=== PATIENT | male | born 1960 | race Caucasian/White ===

== ENCOUNTER 2023-07-17 13:26 | Emergency (ER) | payer OTHER ==
[2023-07-17 13:54] VITALS: BP 152/75; PULSE 79; RESP 18; TEMP 99.4; BMI 34.7
[2023-07-17] MEDS ORDERED: ACETAMINOPHEN INJECTION 100 ML IVPB ONE (14:08)
[2023-07-17] MEDS: SODIUM CHLORIDE 0.9% 1000 ML INFUS.BAG IV ONE (14:28)
[2023-07-17] MEDS: ACETAMINOPHEN 1000 MG/100 ML BAG IVPB ONE (14:28)
[2023-07-17 14:44] LABS: HEMOGLOBIN 14.7 G/dL (11.7-16.9); MCH 31.2 pg (25.7-33.7); MCHC 33.5 g/dl (32.0-35.9); PLATELET COUNT 286.7 10^3/uL (134-434); RBC 4.73 10^6/uL (4.00-5.60); RDW 14.2 % (11.9-15.9); WHITE BLOOD COUNT 6.3 10^3/uL (4.0-10.8)
[2023-07-17 15:22] LABS: CALCIUM 8.9 mg/dL (8.5-10.1)
[2023-07-17 15:23] LABS: PLATELET ESTIMATE ADEQUATE
[2023-07-17 15:24] LABS: ALBUMIN 3.7 g/dl (3.4-5.0); BLOOD UREA NITROGEN 18.6 mg/dL (7-18)
[2023-07-17 15:25] LABS: CREATININE 0.6 mg/dL (0.55-1.3)
[2023-07-17 15:27] LABS: BILIRUBIN,TOTAL 1.1 mg/dL (0.2-1); TOT PROT 6.9 g/dl (6.4-8.2)
[2023-07-17] MEDS ORDERED: SIMETHICONE 80 MG TAB.CHEW (FP) ONE (19:13)
[2023-07-17] MEDS: MAG HYDROX/AL HYDROX/SIMETH 30 ML UNIT-DOSE CUP PO ONE (19:20)
[2023-07-17] MEDS: SIMETHICONE 80 MG TAB.CHEW (FP) PO ONE (19:20)
== END 2023-07-17 19:20 | disposition home or self-care (01) ==
LOC: FER 13:26
PROC: 3E033NZ Introduction of Analgesics, Hypnotics, Sedatives into Peripheral Vein, Percutaneous Approach (ICD-10-PCS; principal; 2023-07-17)
DX: R10.84 Generalized abdominal pain (principal)
CPT/HCPCS: 36415; 74019-TC-FY; 74177-TC; 80053; 82272; 83690; 85027; 99285-25; J0131; Q9967

== ENCOUNTER 2023-07-19 15:23 | Observation (INO) | payer OTHER ==
[2023-07-19] MEDS ORDERED: HYDROmorphone HCl 2 MG/ML VIAL ONE ×2 (15:49→22:48)
[2023-07-19] MEDS: HYDROmorphone HCl 2 MG/ML VIAL IVPUSH ONE ×2 (15:53→22:56)
[2023-07-19] MEDS ORDERED: ONDANSETRON 4 MG/2 ML VIAL ONE ×2 (16:09→22:49)
[2023-07-19] MEDS ORDERED: FAMOTIDINE 20 MG/50 ML IVPB 20 MG/50 ML MG IVPB ONE (16:09)
[2023-07-19 16:12] LABS: BASO % 0.3 % (0-2.0); HEMATOCRIT 45.9 % (35.4-49); HEMOGLOBIN 16.1 GM/dL (11.7-16.9); LYMPH % 10.4 % (8-40); MCH 31.7 pg (25.7-33.7); MCHC 35.1 g/dl (32.0-35.9); MEAN CELL VOLUME 90.4 fl (80-96); MEAN PLT VOLUME 7.4 fl (7.5-11.1); MONO % 7.1 % (3.8-10.2); NEUT % 81.2 % (42.8-82.8); PLATELET COUNT 362 10^3/uL (134-434); RBC 5.07 M/mm3 (4.00-5.60); RDW 13.9 % (11.9-15.9); WHITE BLOOD COUNT 10.3 K/mm3 (4.0-10.0)
[2023-07-19] MEDS: ONDANSETRON 4 MG/2 ML VIAL IVPUSH ONE ×2 (16:15→22:56)
[2023-07-19] MEDS: FAMOTIDINE 20 MG/50 ML IVPB 20 MG/50 ML MG IVPB ONE (16:15)
[2023-07-19] MEDS: LACTATED RINGERS SOLUTION 1000 ML INFUS.BAG IV ONE ×2 (16:15→22:57)
[2023-07-19 16:19] LABS: INR 1.01 (0.83-1.09); PROTHROMBIN TIME (PATIENT) 11.4 SEC (9.7-13.0)
[2023-07-19 16:22] LABS: ACTIVATED PTT 29.4 SECONDS (25.2-36.5)
[2023-07-19 16:34] LABS: POTASSIUM 3.8 mmol/L (3.5-5.1)
[2023-07-19 16:38] LABS: ALBUMIN 4.2 g/dl (3.4-5.0); BLOOD UREA NITROGEN 15.2 mg/dL (7-18); CALCIUM 9.9 mg/dL (8.5-10.1)
[2023-07-19 16:40] LABS: CREATININE 0.7 mg/dL (0.55-1.3)
[2023-07-19 16:43] LABS: BILIRUBIN,TOTAL 0.9 mg/dL (0.2-1); TOT PROT 7.8 g/dl (6.4-8.2)
[2023-07-20] MEDS ORDERED: ONDANSETRON 4 MG/2 ML VIAL IVPUSH PRN (01:14)
[2023-07-20] MEDS ORDERED: PANTOPRAZOLE SODIUM 40 MG/100 ML BAG IVPB ONE (01:29)
[2023-07-20] MEDS: LACTATED RINGERS SOLUTION 1,000 ML/1,000 ML INFUS.BAG IV SCH (01:47)
[2023-07-20] MEDS: PANTOPRAZOLE SODIUM 40 MG VIAL IVPUSH SCH ×2 (01:47→11:07)
[2023-07-20 06:53] LABS: EPI CELLS 1 /uL (0-25.1); HYALINE CASTS 0 /uL (0-3.1); URINE APPEARANCE CLEAR; URINE BACTERIA 6 /uL (0-1359); URINE BILIRUBIN NEGATIVE (NEGATIVE); URINE COLOR YELLOW; URINE GLUCOSE (UA) NEGATIVE (NEGATIVE); URINE KETONE NEGATIVE (NEGATIVE); URINE LEUK ESTERASE NEGATIVE (NEGATIVE); URINE NITRITE NEGATIVE (NEGATIVE); URINE PROTEIN NEGATIVE (NEGATIVE); URINE RBC 31 /uL (0-23.9); URINE WBC 6 /uL (0-25.8)
[2023-07-20 07:16] LABS: HEMATOCRIT 38.1 % (35.4-49); HEMOGLOBIN 13.4 GM/dL (11.7-16.9); MCH 32.3 pg (25.7-33.7); MCHC 35.1 g/dl (32.0-35.9); MEAN PLT VOLUME 7.3 fl (7.5-11.1); PLATELET COUNT 303 10^3/uL (134-434); RBC 4.14 M/mm3 (4.00-5.60); RDW 13.5 % (11.9-15.9); WHITE BLOOD COUNT 6.6 K/mm3 (4.0-10.0)
[2023-07-20] MEDS: INSULIN ASPART SLIDING SCALE (NOVOLOG) 1 VIAL SQ SCH (07:39)
[2023-07-20 07:40] LABS: POTASSIUM 3.6 mmol/L (3.5-5.1)
[2023-07-20 07:58] LABS: CALCIUM 8.6 mg/dL (8.5-10.1)
[2023-07-20 07:59] LABS: BLOOD UREA NITROGEN 11.3 mg/dL (7-18)
[2023-07-20 08:01] LABS: CHOLESTEROL 123 mg/dL (50-200); CREATININE 0.6 mg/dL (0.55-1.3); PHOSPHOROUS 3.5 mg/dL (2.5-4.9)
[2023-07-20 08:03] LABS: HDL CHOLESTEROL 51 mg/dL (40-60); LDL CHOLESTEROL (ONLY SJRH) 65 mg/dL (5-100); TOT PROT 6.1 g/dl (6.4-8.2)
[2023-07-20 08:05] LABS: ALBUMIN 3.2 g/dl (3.4-5.0)
[2023-07-20] MEDS: ESCITALOPRAM OXALATE 10 MG TABLET PO SCH (09:36)
[2023-07-20] MEDS: LISINOPRIL 20 MG TABLET PO SCH (09:36)
[2023-07-20] MEDS: amLODIPine BESYLATE 10 MG TABLET (FP) PO SCH (09:36)
[2023-07-20] MEDS: ENOXAPARIN NA (PORCINE) 40 MG/0.4 ML DISP.SYRIN SQ SCH (09:37)
[2023-07-20 10:34] VITALS: BMI 34.9
[2023-07-20] MEDS: buPROPion HCL 75 MG TABLET PO SCH (12:02)
[2023-07-20] MEDS: ACETAMINOPHEN 1000 MG/100 ML BAG IVPB PRN (19:17)
[2023-07-20] MEDS: ATORVASTATIN CA 20 MG TABLET (FP) PO SCH (21:15)
[2023-07-21] MEDS: MELATONIN 5 MG TABLETS PO PRN (00:14)
[2023-07-21] MEDS ORDERED: LIDOCAINE VISCOUS 2% ORAL/TOP 15 ML UNIT-DOSE CUP MM PRN (09:42)
[2023-07-21] MEDS: ESCITALOPRAM OXALATE 10 MG TABLET PO SCH (11:17)
[2023-07-22] MEDS ORDERED: INSULIN (NOVOLOG) ASPART 100 UNITS/ML 10ML VIAL ONE (06:14)
[2023-07-22 11:53] VITALS: RESP 19
[2023-07-22 13:44] VITALS: BP 133/82; PULSE 64; TEMP 98.2
== END 2023-07-22 14:21 | disposition home or self-care (01) ==
LOC: JER 15:23 → JERBED 21:47 → UNDOADMOB 21:47 → INTOOBSV 21:47 → JERBED 07-20 06:48 → J8W 07-20 06:48 → JERBED 07-20 15:02 → J7W 07-20 18:55
PROVIDERS: ADMIT Internal Medicine; ATTEND Nurse Practitioner
PROC: 3E033GC Introduction of Other Therapeutic Substance into Peripheral Vein, Percutaneous Approach (ICD-10-PCS; principal; 2023-07-20)
PROC: 3E033NZ Introduction of Analgesics, Hypnotics, Sedatives into Peripheral Vein, Percutaneous Approach (ICD-10-PCS; 2023-07-20)
PROC: 3E023GC Introduction of Other Therapeutic Substance into Muscle, Percutaneous Approach (ICD-10-PCS; 2023-07-20)
PROC: 3E033NZ Introduction of Analgesics, Hypnotics, Sedatives into Peripheral Vein, Percutaneous Approach (ICD-10-PCS; 2023-07-20)
PROC: 3E0337Z Introduction of Electrolytic and Water Balance Substance into Peripheral Vein, Percutaneous Approach (ICD-10-PCS; 2023-07-20)
PROC: 0WUF4JZ Supplement Abdominal Wall with Synthetic Substitute, Percutaneous Endoscopic Approach (ICD-10-PCS; 2023-07-20)
DX: Z53.8 Procedure and treatment not carried out for other reasons (principal); K56.609 Unspecified intestinal obstruction, unspecified as to partial versus complete obstruction; K42.9 Umbilical hernia without obstruction or gangrene; F41.9 Anxiety disorder, unspecified; E78.5 Hyperlipidemia, unspecified; E66.9 Obesity, unspecified; Z68.35 Body mass index [BMI] 35.0-35.9, adult; I10 Essential (primary) hypertension
CPT/HCPCS: 36415; 74019-TC-FY; 74177-TC; 76705-TC; 80053; 80061; 81003; 83036; 83605; 83690; 83735; 84100; 85025; 85027; 85610; 85730; 86850; 86900; 86901; 87086; 93005; 93010; 96361; 96365; 96372; 96375; 96376; 99285-25; G0378; J0131; Q9967

== ENCOUNTER 2023-07-23 01:10 | Observation (INO) | payer OTHER ==
[2023-07-23] MEDS ORDERED: ONDANSETRON 4 MG/2 ML VIAL ONE ×2 (01:38→10:54)
[2023-07-23] MEDS ORDERED: morphine SULFATE 4 MG/ML VIAL ONE (01:38)
[2023-07-23] MEDS: SODIUM CHLORIDE 0.9% 500 ML INFUS.BAG IV ONE ×2 (02:05→04:01)
[2023-07-23] MEDS: ONDANSETRON 4 MG/2 ML VIAL IVPUSH ONE (02:05)
[2023-07-23 02:10] LABS: BASO % 0.4 % (0-2.0); EOS % 3.5 % (0-4.5); HEMATOCRIT 45.5 % (35.4-49); HEMOGLOBIN 16.1 GM/dL (11.7-16.9); LYMPH % 19.1 % (8-40); MCHC 35.5 g/dl (32.0-35.9); MEAN CELL VOLUME 90.3 fl (80-96); MEAN PLT VOLUME 7.1 fl (7.5-11.1); PLATELET COUNT 388 10^3/uL (134-434); RBC 5.04 M/mm3 (4.00-5.60); RDW 13.8 % (11.9-15.9); WHITE BLOOD COUNT 10.1 K/mm3 (4.0-10.0)
[2023-07-23 02:17] LABS: INR 1.03 (0.83-1.09); PROTHROMBIN TIME (PATIENT) 11.8 SEC (9.7-13.0)
[2023-07-23 02:20] LABS: ACTIVATED PTT 32.8 SECONDS (25.2-36.5)
[2023-07-23] MEDS: morphine CARPU-JECT 4 MG/1 ML DISP.SYRIN IVPUSH ONE ×2 (02:27→02:59)
[2023-07-23 02:32] LABS: POTASSIUM 3.9 mmol/L (3.5-5.1)
[2023-07-23 02:34] LABS: CALCIUM 9.8 mg/dL (8.5-10.1); LACTIC ACID 2.1 mmol/L (0.4-2.0)
[2023-07-23 02:35] LABS: BLOOD UREA NITROGEN 12.4 mg/dL (7-18); MAGNESIUM 2.2 mg/dL (1.8-2.4)
[2023-07-23 02:37] LABS: CREATININE 0.9 mg/dL (0.55-1.3)
[2023-07-23 02:39] LABS: BILIRUBIN,TOTAL 0.7 mg/dL (0.2-1); TOT PROT 7.4 g/dl (6.4-8.2)
[2023-07-23] MEDS ORDERED: ACETAMINOPHEN INJECTION 100 ML IVPB ONE ×2 (02:42→10:53)
[2023-07-23 02:44] LABS: ALBUMIN 4.1 g/dl (3.4-5.0)
[2023-07-23] MEDS: ACETAMINOPHEN 1000 MG/100 ML BAG IVPB ONE (02:59)
[2023-07-23] MEDS ORDERED: PATIENT'S OWN MEDICATION (NON-FORMULARY) (Omeprazole [Omeprazole] 20 MG Tablet.Dr) PO SCH (10:15)
[2023-07-23] MEDS: ONDANSETRON 4 MG/2 ML VIAL IVPUSH PRN (11:06)
[2023-07-23] MEDS: ACETAMINOPHEN 1000 MG/100 ML BAG IVPB PRN (11:06)
[2023-07-23] MEDS ORDERED: PANTOPRAZOLE 40 MG TABLET PO ONE (11:32)
[2023-07-23] MEDS ORDERED: amLODIPine BESYLATE 10 MG TABLET (FP) ONE (11:33)
[2023-07-23] MEDS ORDERED: ESCITALOPRAM OXALATE 10 MG TABLET ONE (11:33)
[2023-07-23] MEDS ORDERED: LISINOPRIL 20 MG TABLET ONE (11:33)
[2023-07-23] MEDS: ESCITALOPRAM OXALATE 10 MG TABLET PO SCH (11:54)
[2023-07-23] MEDS: amLODIPine BESYLATE 10 MG TABLET (FP) PO SCH (11:54)
[2023-07-23] MEDS: PANTOPRAZOLE 40 MG TABLET PO SCH (11:54)
[2023-07-23] MEDS: LISINOPRIL 20 MG TABLET PO SCH (11:54)
[2023-07-23] MEDS: LACTATED RINGERS SOLUTION 1,000 ML/1,000 ML INFUS.BAG IV SCH (11:55)
[2023-07-23] MEDS: ATORVASTATIN CA 20 MG TABLET (FP) PO SCH (21:17)
[2023-07-24 15:50] VITALS: BMI 34.3
[2023-07-24] MEDS: DOCUSATE SODIUM 100 MG CAPSULE (FP) PO SCH (16:47)
[2023-07-25] MEDS: LACTATED RINGERS SOLUTION 1,000 ML/1,000 ML INFUS.BAG IV SCH (21:59)
[2023-07-26 09:42] LABS: BASO % 0.8 % (0-2.0); EOS % 3.8 % (0-4.5); LYMPH % 23.6 % (8-40); MCH 31.2 pg (25.7-33.7); MCHC 34.2 g/dl (32.0-35.9); MEAN CELL VOLUME 91.3 fl (80-96); MEAN PLT VOLUME 7.1 fl (7.5-11.1); MONO % 10.3 % (3.8-10.2); NEUT % 61.5 % (42.8-82.8); PLATELET COUNT 360 10^3/uL (134-434); RBC 4.49 M/mm3 (4.00-5.60); RDW 13.3 % (11.9-15.9); WHITE BLOOD COUNT 6.3 K/mm3 (4.0-10.0)
[2023-07-26] MEDS ORDERED: BUPIVACAINE HCL/PF 0.25% (2.5MG/ML) 10 ML VIAL ONE (09:48)
[2023-07-26] MEDS ORDERED: FENTANYL CITRATE/PF 50 MCG/ML VIAL ONE ×5 (09:53→19:05)
[2023-07-26] MEDS ORDERED: MIDAZOLAM HCL 2 MG/2 ML SINGLE DOSE VIAL ONE (09:54)
[2023-07-26] MEDS ORDERED: ROCURONIUM BROMIDE 50 MG/5 ML VIAL ONE ×4 (09:54→16:03)
[2023-07-26] MEDS ORDERED: PROPOFOL 20 ML ONE ×2 (09:54→18:14)
[2023-07-26 09:55] LABS: CALCIUM 9.2 mg/dL (8.5-10.1)
[2023-07-26] MEDS ORDERED: SUCCINYLCHOLINE CHLORIDE 200 MG/10 ML SYRINGE ONE (09:56)
[2023-07-26 09:59] LABS: CREATININE 0.6 mg/dL (0.55-1.3)
[2023-07-26] MEDS ORDERED: DEXAMETHASONE SOD PHOSPHATE 4 MG/1 ML VIAL ONE (10:41)
[2023-07-26] MEDS ORDERED: ONDANSETRON 4 MG/2 ML VIAL ONE (10:41)
[2023-07-26] MEDS: ceFAZolin SODIUM 1 GM VIAL IVPB ONE (10:50)
[2023-07-26] MEDS ORDERED: ceFAZolin SODIUM 1 GM VIAL ONE (10:58)
[2023-07-26] MEDS ORDERED: HYDROmorphone HCl 2 MG/ML VIAL ONE (11:21)
[2023-07-26] MEDS ORDERED: ACETAMINOPHEN INJECTION 100 ML IVPB ONE (11:45)
[2023-07-26] MEDS ORDERED: SUGAMMADEX SODIUM 200 MG/2 ML VIAL ONE (16:04)
[2023-07-26] MEDS ORDERED: KETOROLAC TROMETHAMINE 30 MG/1 ML VIAL ONE (16:04)
[2023-07-26] MEDS: BUPIVACAINE HCL/PF 2.5 MG/ML - 30 ML VIAL IJ ONE (18:34)
[2023-07-26] MEDS ORDERED: ONDANSETRON 4 MG/2 ML VIAL IVPUSH PRN ×3 (18:48→18:58)
[2023-07-26] MEDS ORDERED: HYDROmorphone HCl 2 MG/ML VIAL IVPB PRN (18:58)
[2023-07-26] MEDS ORDERED: LACTATED RINGERS SOLUTION 1,000 ML/1,000 ML INFUS.BAG IV SCH (18:58)
[2023-07-26] MEDS: LACTATED RINGERS SOLUTION 1,000 ML IV SCH (19:00)
[2023-07-26] MEDS ORDERED: LACTATED RINGERS SOLUTION 1,000 ML IV SCH (19:00)
[2023-07-26] MEDS: ACETAMINOPHEN 325 MG TABLET (FP) PO SCH (19:52)
[2023-07-26] MEDS: ATORVASTATIN CA 20 MG TABLET (FP) PO SCH (21:31)
[2023-07-27 06:09] VITALS: RESP 16
[2023-07-27 08:37] LABS: BASO % 0.2 % (0-2.0); EOS % 0.6 % (0-4.5); HEMATOCRIT 36.4 % (35.4-49); HEMOGLOBIN 12.6 GM/dL (11.7-16.9); LYMPH % 17.1 % (8-40); MCH 31.4 pg (25.7-33.7); MCHC 34.5 g/dl (32.0-35.9); MEAN CELL VOLUME 90.9 fl (80-96); MONO % 10.7 % (3.8-10.2); NEUT % 71.4 % (42.8-82.8); PLATELET COUNT 338 10^3/uL (134-434); RBC 4.01 M/mm3 (4.00-5.60); RDW 13.4 % (11.9-15.9); WHITE BLOOD COUNT 7.7 K/mm3 (4.0-10.0)
[2023-07-27 08:55] LABS: POTASSIUM 3.9 mmol/L (3.5-5.1)
[2023-07-27 08:58] LABS: CALCIUM 8.5 mg/dL (8.5-10.1)
[2023-07-27 08:59] LABS: BLOOD UREA NITROGEN 8.7 mg/dL (7-18)
[2023-07-27 09:02] LABS: CREATININE 0.6 mg/dL (0.55-1.3)
[2023-07-27 09:03] LABS: BILIRUBIN,TOTAL 0.8 mg/dL (0.2-1); TOT PROT 6.1 g/dl (6.4-8.2)
[2023-07-27 09:05] LABS: ALBUMIN 3.3 g/dl (3.4-5.0)
[2023-07-27] MEDS: oxyCODONE HCL 5 MG TABLET PO PRN (10:13)
[2023-07-27] MEDS: SIMETHICONE 80 MG TAB.CHEW (FP) PO PRN (10:13)
[2023-07-27] MEDS: amLODIPine BESYLATE 10 MG TABLET (FP) PO SCH (10:13)
[2023-07-27] MEDS: PANTOPRAZOLE 40 MG TABLET PO SCH (10:13)
[2023-07-27] MEDS: DOCUSATE SODIUM 100 MG CAPSULE (FP) PO SCH (10:14)
[2023-07-27] MEDS: LISINOPRIL 20 MG TABLET PO SCH (10:14)
[2023-07-27] MEDS: ENOXAPARIN NA (PORCINE) 40 MG/0.4 ML DISP.SYRIN SQ SCH (10:14)
[2023-07-27] MEDS: ESCITALOPRAM OXALATE 10 MG TABLET PO SCH (12:04)
[2023-07-27 13:54] VITALS: BP 137/71; PULSE 61; TEMP 98.4
== END 2023-07-27 14:51 | disposition home or self-care (01) ==
LOC: JER 01:10 → JERBED 06:54 → INTOOBSV 06:54 → UNDOADMOB 06:54 → J7W 10:03 → JERBED 10:11 → UNDOADMOB 10:11 → JER 12:16 → JERBED 12:24 → J7W 12:24
PROVIDERS: ADMIT Internal Medicine
PROC: 3E033NZ Introduction of Analgesics, Hypnotics, Sedatives into Peripheral Vein, Percutaneous Approach (ICD-10-PCS; principal; 2023-07-23)
PROC: 3E023GC Introduction of Other Therapeutic Substance into Muscle, Percutaneous Approach (ICD-10-PCS; 2023-07-23)
PROC: 3E0337Z Introduction of Electrolytic and Water Balance Substance into Peripheral Vein, Percutaneous Approach (ICD-10-PCS; 2023-07-23)
PROC: 3E033GC Introduction of Other Therapeutic Substance into Peripheral Vein, Percutaneous Approach (ICD-10-PCS; 2023-07-23)
PROC: 0WUF0JZ Supplement Abdominal Wall with Synthetic Substitute, Open Approach (ICD-10-PCS; 2023-07-23)
PROC: 8E0W0CZ Robotic Assisted Procedure of Trunk Region, Open Approach (ICD-10-PCS; 2023-07-23)
DX: K42.9 Umbilical hernia without obstruction or gangrene (principal); I10 Essential (primary) hypertension; F41.9 Anxiety disorder, unspecified; E78.5 Hyperlipidemia, unspecified
CPT/HCPCS: 36415; 71045-TC-FY; 74018-TC-FY; 74177-TC; 80048; 80053; 83605; 83690; 83735; 85025; 85610; 85730; 86850; 86900; 86901; 93005; 93010; 94010; 94760; 96361; 96372; 96374; 96375; 96376; 99285-25; C1781; G0378; J0131; Q9967